=== PATIENT | female | born 1945 | race Hispanic/Latino ===

== ENCOUNTER → 2024-01-23 | Outpatient (CLI) | payer MEDICARE ==
[~2024-01-23] VITALS: Ht 157.5 cm; Wt 70.9 kg
[~2024-01-23] MED LIST: ATOR20TA65 PO; DILT180C77 PO
[2024-01-23 09:52] LABS: BASOPHILS # (AUTO) 0.04 K/uL (0.00-0.20); BASOPHILS % (AUTO) 0.5 % (0.0-5.0); EOSINOPHILS # (AUTO) 0.17 K/uL (0.00-0.70); HEMATOCRIT 37.6 % (36-48); IMMATURE GRANULOCYTE ABSOLUTE 0.04 K/uL (0-1); LYMPHOCYTES # (AUTO) 2.1 K/uL (1.0-4.8); LYMPHOCYTES % (AUTO) 24.5 % (21.0-51.0); MEAN CORPUSCULAR HEMOGLOBIN 26.5 pg (27.0-33.0); MEAN CORPUSCULAR VOLUME 80.3 fL (79-99); MONOCYTES # (AUTO) 0.7 K/uL (0.1-1.0); MONOCYTES % (AUTO) 7.7 % (3.0-13.0); NEUTROPHILS # (AUTO) 5.6 K/uL (1.8-7.7); NEUTROPHILS % (AUTO) 64.8 % (40.0-77.0); PLATELET COUNT (AUTO) 242 K/uL (130-400); RED BLOOD CELL COUNT(AUTO) 4.68 MIL/uL (4.00-5.50); WHITE BLOOD COUNT (AUTO) 8.6 K/uL (4.8-10.8)
[2024-01-23 09:55] VITALS: BP 176/79; PULSE 60; RESP 17; TEMP 97.9
[2024-01-23 09:58] LABS: CREATININE 0.8 mg/dL (0.5-1.0); POTASSIUM 4.2 mmol/L (3.5-5.1)
[2024-01-23 10:02] LABS: INR 0.96 (0.85-1.15); PROTHROMBIN TIME 10.4 SEC (9.6-11.6)
[2024-01-23 10:03] LABS: PARTIAL THROMBOPLASTIN TIME 29.3 SEC (26.3-35.5)
== END | disposition home or self-care (01) ==
LOC: DAH 10:00 → EDSTATUS 02-03 10:30
PROVIDERS: ATTEND Internal Medicine Cardiovascular Disease
DX: Z01.812 Encounter for preprocedural laboratory examination (principal); I47.19 Other supraventricular tachycardia; Z79.01 Long term (current) use of anticoagulants
CPT/HCPCS: 36415; 80048; 85025; 85610; 85730

== ENCOUNTER 2024-04-20 07:52 | Day surgery (SDC) | payer MEDICARE ==
--- NOTE | 2024-04-19 10:46 | EKG ---
[facility] Test Date: 2024-04-19 Test Time: 11:43:46 Pat Name: DOM BARBA Department: [facility] Room: Gender: F Process Consultant: [id number] : 1945 Requested By: BERNICE DIAZ Order Number: [id number] Reading MD: Shanice Currie Measurements Intervals [place] Rate: 58 P: 24 MT: 190 QRS: 41 QRSD: 84 T: 57 QT: 422 QTc: 414 Interpretive Statements Sinus bradycardia Compared to ECG 01/30/2024 11:54:02 Sinus rhythm no longer present Ventricular premature complex(es) no longer present Electronically Signed On 04-19-2024 13:16:45 [employer]PER[employer] by Shanice Currie Please click the below link to view image of tracing.
[2024-04-19 10:53] LABS: BASOPHILS # (AUTO) 0.05 K/uL (0.00-0.20); BASOPHILS % (AUTO) 0.7 % (0.0-5.0); EOSINOPHILS # (AUTO) 0.17 K/uL (0.00-0.70); EOSINOPHILS % (AUTO) 2.5 % (0.0-8.0); HEMATOCRIT 35.3 % (36-48); IMMATURE GRANULOCYTE ABSOLUTE 0.02 K/uL (0-1); LYMPHOCYTES # (AUTO) 2.1 K/uL (1.0-4.8); MEAN CORPUSCULAR HGB CONC 33.1 g/dL (32.0-36.0); MEAN CORPUSCULAR VOLUME 81.5 fL (79-99); MONOCYTES # (AUTO) 0.6 K/uL (0.1-1.0); MONOCYTES % (AUTO) 9.4 % (3.0-13.0); NEUTROPHILS # (AUTO) 3.7 K/uL (1.8-7.7); NEUTROPHILS % (AUTO) 55.1 % (40.0-77.0); PLATELET COUNT (AUTO) 269 K/uL (130-400); RED BLOOD CELL COUNT(AUTO) 4.33 MIL/uL (4.00-5.50); RED CELL DISTRIBUTION WIDTH 14.1 % (11.0-15.5); WHITE BLOOD COUNT (AUTO) 6.7 K/uL (4.8-10.8)
[2024-04-19 11:04] VITALS: BP 167/71; PULSE 61; RESP 16; TEMP 97.5
[2024-04-19 11:04] LABS: CREATININE 0.8 mg/dL (0.5-1.0); INR 0.96 (0.85-1.15); POTASSIUM 4.2 mmol/L (3.5-5.1); PROTHROMBIN TIME 10.4 SEC (9.6-11.6)
[2024-04-19 11:06] LABS: PARTIAL THROMBOPLASTIN TIME 29.1 SEC (26.3-35.5)
[~2024-04-20] VITALS: Ht 162.6 cm; Wt 71.8 kg
[2024-04-20] VITALS (9 sets, daily range): BP systolic 132–184; BP diastolic 57–79; PULSE 67–81; RESP 16–20; TEMP 97.1–98.3
[2024-04-20] MEDS ORDERED: 0.9%NACL 1000ML 1,000 ML IV SCH (09:30)
[2024-04-20] MEDS ORDERED: HEParin 10,000 UNIT/10ML (1,000 UNIT/ML) VIAL ONE ×2 (13:39→16:43)
[2024-04-20] MEDS ORDERED: ISOPROTERENOL HCL 0.2 MG/ML AMP/VIAL/BAG ONE (13:39)
[2024-04-20] MEDS ORDERED: HEParin-NS 1,000 UNIT/500 ML 500 ML IV ONE ×2 (13:39→13:55)
[2024-04-20] MEDS ORDERED: LIDOCAINE HCL 400MG/20ML VIAL ONE (13:40)
[2024-04-20] MEDS ORDERED: MEPERIDINE-PF 25 MG/ML SYG ONE ×3 (14:06→17:49)
[2024-04-20] MEDS ORDERED: MIDAZOLAM HCL 1 MG/ML 2ML VIAL ONE ×3 (14:06→17:49)
[2024-04-20] MEDS ORDERED: ADENOSINE 90MG VIAL IV ONE (14:57)
[2024-04-20] MEDS ORDERED: PROTamine SULFate 10 MG/ML 25ML VIAL IV ONE (17:46)
[2024-04-20] MEDS ORDERED: Solu-medROL 125MG VIAL ONE (17:51)
[2024-04-20] MEDS ORDERED: DiphenhydrAMINE HCL 50 MG/ML VIAL ONE (17:51)
[2024-04-20] MEDS ORDERED: ASPI-1146 PO (18:42)
[2024-04-20] MEDS ORDERED: LOSA25TA41 PO (18:42)
== END 2024-04-20 21:06 | disposition home or self-care (01) ==
LOC: DAH 07:52
PROVIDERS: ATTEND Internal Medicine Cardiovascular Disease
DX: I47.10 Supraventricular tachycardia, unspecified (principal); I10 Essential (primary) hypertension; Z79.01 Long term (current) use of anticoagulants; Z79.899 Other long term (current) drug therapy
CPT/HCPCS: 80048; 85025; 85610; 85730; 36415; 93005; 93653; 93623; 93462; 93662; 85347 ×4; C1894 ×6; C1732 ×2; C1730 ×3; C1893; A4215 ×2; A4649 ×2; J1200; J3490 ×2; J1644 ×4; J2250 ×3; J2175 ×3; J0153; A4222; A4221; A4663; A4216; A4606; J2720; A4223 ×3; 99156; 99157; J2919